=== PATIENT | female | born 1985 | race Caucasian/White ===

== ENCOUNTER 2022-06-30 11:24 | Outpatient (CLI) | payer OTHER ==
[~2022-06-30 11:24] MED LIST: SINTHROID; SYNTHROID50 MCG PO
== END 2022-06-30 11:29 | disposition home or self-care (01) ==
LOC: SONOGRAMA 11:24
PROVIDERS: ATTEND Pathology Anatomic Pathology
DX: E04.2 Nontoxic multinodular goiter (principal); E06.3 Autoimmune thyroiditis